=== PATIENT | female | born 1955 | race Caucasian/White ===

== ENCOUNTER 2016-08-02 12:41 | Emergency (ER) | payer MEDICAID ==
--- NOTE | 2016-08-02 12:58 | EDPHY ---
H & P Time Seen by Provider: 08/02/16 12:56 HPI/ROS: CHIEF COMPLAINT: Multiple complaints HISTORY OF PRESENT ILLNESS: This patient is a homeless 61 year old female who presents to the Emergency Department with multiple complaints: "I am deteriorating physically." She has no acute complaints and states that she is mostly looking to speak to a social work program coordinator. She describes chronic bilateral hip and leg pain. She also reports a pruritic rash to her back. She is concerned about lumps to her breasts and would like a referral to a physician to address this. She has been to [facility] regarding her concerns and states that they have not been addressed. She denies any additional medical history. REVIEW OF SYSTEMS: Constitutional: No fever Eyes: No drainage ENT: chronic congestion, No sore throat Respiratory: No cough, no shortness of breath Cardiac: No chest pain Gastrointestinal: No nausea, no vomiting, no abdominal pain Genitourinary: no dysuria Musculoskeletal: +chronic bilateral hip and leg pain Skin: +pruritic rash to back Neurological: No headache Psychiatric: anxiety Past Medical/Surgical History: Chronic hip and back pain. Social History: Homeless, recently transitioned to [place]. Smokes daily. Smoking Status: Current every day smoker Physical Exam: General Appearance: Alert, very talkative Eyes: Pupils equal and round, no conjunctival pallor or injection ENT, Mouth: Mucous membranes moist Neck: Normal inspection Respiratory: Lungs are clear to auscultation Neurological: A&O, nonfocal, normal gait Skin: Warm and dry, maculopapular rash to torso and upper extremities Extremities: normal inspection Psychiatric: Mood and affect normal Constitutional: Initial Vital Signs Temperature (C) 37.2 C 08/02/16 12:42 Heart Rate 84 08/02/16 12:42 Respiratory Rate 16 08/02/16 12:42 Blood Pressure 100/76 08/02/16 12:42 O2 Sat (%) 90 L 08/02/16 12:42 O2 Delivery Mode Room Air Allergies/Adverse Reactions: cephalexin [From Keflex] Allergy (Verified 08/02/16 12:48) Sulfa (Sulfonamide Antibiotics) Allergy (Verified 08/02/16 12:48) Home Medications: Medication Instructions Recorded guaiFENesin [Guaifenesin] 200 mg PO Q4 PRN #30 tablet 08/02/16 Medical Decision Making ED Course/Re-evaluation: This is a homeless 61 year old female recently transitioned to [place] who presents with multiple chronic complaints including leg and hip pain and a mild rash to her back. She states that she is mostly here to speak to a Analyst [employer]. Her exam is benign apart from a mild maculopapular rash to her torso and upper extremities. I discussed with her my recommendation that she use OTC Benadryl to treat her rash; she is agreeable to this. I have arranged for her to discuss her concerns with our Crosscutter on site. I provided her with a referral to [facility] to coordinate her long-term care. I have also given her the contact information for [facility] per her request. She will be discharged home in good condition with resources to follow-up for long-term treatment and plan of care. Differential Diagnosis: The differential diagnosis for the patient's rash included but was not limited to anaphylactoid reaction, urticarial reaction, and other infectious causes for skin rash. Departure - Departure Disposition: Home, Routine, Self-Care Clinical Impression: Rash Condition: Good Instructions: Acute Rash (ED) Additional Instructions: 1. As you have requested, the contact information for [facility] is below: Address: [facility] [facility], [address], [place] [address] 2. Use [id number] Benadryl as directed to treat your rash. 3. I recommend that you follow-up at [facility] to arrange long-term care. This is your best opportunity to arrange follow-up with specialists for your ongoing concerns. [facility] Address: [address] [place], [place] [id number] Hours of Operation: Day Clinic Opens Closed for Lunch Clinica Closes Monday 8am 1-2pm 5pm Monday 8am 1-2pm 8pm Monday 8am 1-2pm 5pm 8am 1-2pm 8pm Monday 8am 1-2pm 5pm 4. Please return to the Emergency Department for any serious concerns such as: shortness of breath, chest pain, severe headache. Referrals: [facility],. [Clinic] - As per Instructions Prescriptions: guaiFENesin [Guaifenesin] 200 mg PO Q4 PRN #30 tablet PRN Reason: cough and congestion Report Scribed for: Tammie Berg Report Scribed by: Ailyn Yoon Date of Report: 08/02/16 Time of Report: 12:58 Physician Review and Approval Statement: 08/02/16 12:58 Portions of this note were transcribed by a medical care evaluation specialist. I personally performed a history, physical exam, medical decision making, and confirmed accuracy of information the transcribed note.
[2016-08-02 14:36] VITALS: BP 115/81; PULSE 82; RESP 18; TEMP 97.3; O2SAT 91
== END 2016-08-02 14:36 | disposition home or self-care (01) ==
DX: R21 Rash and other nonspecific skin eruption (principal); F17.200 Nicotine dependence, unspecified, uncomplicated

== ENCOUNTER 2017-02-10 10:10 | Emergency (ER) | payer MEDICAID ==
[2017-02-10 10:16] VITALS: BP 105/73; PULSE 89; RESP 16; TEMP 98.1; O2SAT 95
[2017-02-10] MEDS ORDERED: DEXAMETHASONE 4 MG TAB PO ONE (10:52)
[2017-02-10] MEDS ORDERED: NEOMYCIN/POLYMYX B/HC SUSP 10 ML OTIC.BTL OT ONE (10:53)
--- NOTE | 2017-02-10 10:54 | EDPHY ---
H & P Stated Complaint: sore throat for 2 weeks, and pink eye to both Time Seen by Provider: 02/10/17 10:53 HPI/ROS: HPI: This is a 61-year-old female presents with Chief Complaint: sore throat for 2 weeks, and pink eye to both Location: Throat Quality: Sore Duration: 2 Signs and Symptoms: No fever, no difficulty swallowing, no difficulty speaking , no neck stiffness, no headache Timing: Daily, intermittent Severity: [id number] Context: Patient is currently homeless and lives in a detention. She comes in cut with complains of sore throat for the last 2 weeks. 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 She is able to eat and drink fluids okay. She also reports that she woke up with her right eye that was red this morning with eyelash matting. She is requesting for an [id number] prescription of antihistamine. She is asking for some antibiotics for her eye and throat and reports that she will follow up with [facility]. Modifying Factors: None Comment: ROS: see HPI Constitutional: No fever, no chills, no weight loss Eyes: No blurred vision Respiratory: No shortness of breath, no cough Cardiovascular: No chest pain Gastrointestinal: No nausea, no vomiting, no diarrhea Genitourinary: No dysuria Extremities: No myalgias Neurologic: No weakness, no numbness Skin: No rashes Hematologic: No bruising, no bleeding MEDICAL/SURGICAL/SOCIAL HISTORY: Medical history: CHEMICAL SCHULTE OF THROAT, 2013.. Surgical history: Denies Social history: Homeless CONSTITUTIONAL: Well-appearing adult white female, awake and alert, no obvious distress HEENT: Atraumatic and normocephalic, PERRL, EOMI. Right conjunctiva mildly injected, left conjunctiva clear. Tympanic membranes clear. Oropharynx clear, no exudate and moist pink mucosa. Airway patent. No lymphadenopathy. No meningismus. Cardiovascular: Normal S1/S2, regular rate, regular rhythm, without murmur rub or gallop. PULMONARY/CHEST: Symmetrical and nontender. Clear to auscultation bilaterally. Good air movement. No accessory muscle usage. ABDOMEN: Soft, nondistended, nontender, no rebound, no guarding, no peritoneal signs, no masses or organomegaly. No CVAT. EXTREMITIES: 2/2 pulses, strength 5/5, no deformities, no clubbing, no cyanosis or edema. NEUROLOGICAL: no focal neuro deficits. GCS 15. SKIN: Warm and dry, no erythema. no rash. Good capillary refill. Source: Patient Exam Limitations: No limitations - Personal History Current Tetanus Diphtheria and Acellular Pertussis (TDAP): Yes Tetanus Vaccine Date: 2010 - Medical/Surgical History Hx Asthma: No Hx Chronic Respiratory Disease: No Hx Diabetes: No Hx Cardiac Disease: No Hx Renal Disease: No Hx Cirrhosis: No Hx Alcoholism: No Hx HIV/AIDS: No Hx Splenectomy or Spleen Trauma: No Other PMH: CHEMICAL SCHULTE OF THROAT, 2013. - Social History Smoking Status: Current every day smoker Constitutional: Initial Vital Signs Temperature (C) 36.7 C 02/10/17 10:12 Heart Rate 89 02/10/17 10:12 Respiratory Rate 16 02/10/17 10:12 Blood Pressure 105/73 02/10/17 10:12 O2 Sat (%) 95 02/10/17 10:12 O2 Delivery Mode Room Air Allergies/Adverse Reactions: cephalexin [From Keflex] Allergy (Verified 08/02/16 12:48) Sulfa (Sulfonamide Antibiotics) Allergy (Verified 08/02/16 12:48) Home Medications: Medication Instructions Recorded Amoxicillin Trihydrate 500 mg PO Q8H #21 cap 02/10/17 [Amoxicillin] Levocetirizine Dihydrochloride 5 mg PO DAILY #10 tablet 02/10/17 [Xyzal] Medical Decision Making ED Course/Re-evaluation: Afebrile and no systemic signs Symptoms greater than 10 days; will treat with antibiotics Patient has no signs of strep pharyngitis, tonsillar abscess, airway compromise , sepsis, periorbital cellulitis Given Decadron, Polytrim eyedrops (to take home) and amoxicillin with patient's great persistence Differential Diagnosis: Differential diagnosis includes conjunctivitis, pharyngitis, viral syndrome, upper respiratory infection, allergic rhinitis. Departure - Departure Disposition: Home, Routine, Self-Care Clinical Impression: Conjunctivitis, right eye Qualifiers: Conjunctivitis type: acute Acute conjunctivitis type: unspecified Qualified Code(s): H10.31 - Unspecified acute conjunctivitis, right eye Pharyngitis Qualifiers: Pharyngitis/tonsillitis etiology: unspecified etiology Qualified Code(s): J02.9 - Acute pharyngitis, unspecified Condition: Good Instructions: Conjunctivitis (ED), Pharyngitis (ED) Referrals: [facility],. [Clinic] - As per Instructions Prescriptions: Amoxicillin Trihydrate [Amoxicillin] 500 mg PO Q8H #21 cap Levocetirizine Dihydrochloride [Xyzal] 5 mg PO DAILY #10 tablet
[2017-02-10] MEDS ORDERED: GENTAMICIN 0.3% DROPS PREPACK OPHT.BTL TAKEHOME ONE (11:38)
--- NOTE | 2017-02-10 12:20 | ASMTCMCOM ---
CM Note CM Note Notes: Patient was discharged to the waiting area and then asked for a bus pass. This CM spoke with patient and provided information on how to arrange for a Medicaid/[place] cab ride and informed her that we have a very limited number of bus passes and are unable to provide her with one today. Patient said she tried to arrange for [employer] transportation and was unsuccessful so she will try the Medicaid/[place] option. Patient states she has been staying at the [facility] and plans to follow up with her provider at [facility] next week. CM available for further assistance. Date Signed: 02/10/2017 12:19 PM Electronically Signed By:Valarie Antunez RN
--- NOTE | 2017-02-10 12:26 | ASDISCHSUM ---
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 This CM spoke with patient and provided information on how to arrange for a Medicaid/[place] cab ride and informed her that we have a very limited number of bus passes and are unable to provide her with one today. Patient said she tried to arrange for VIA transportation and was unsuccessful so she will try the Medicaid/[place] option. Patient states she has been staying at the [facility] and plans to follow up with her provider at [facility] next week. CM available for further assistance. Date Signed: 02/10/2017 12:19 PM Electronically Signed By:Valarie Antunez RN LACE LACE Acuity / Level of Care Answers: No. Emergency dept visits in Answers: 2 last 6 months Score: 2 Date Signed: 02/10/2017 12:20 PM Electronically Signed By:Valarie Antunez RN Intervention Information Intervention Type:Transportation Date of Service:02/10/2017 12:24 PM Patient Type:Emergency Room Staff Member:GREGORY Antunez [place] Hours:0.25 Discipline:Supervisor Road Administrator Severity: Comment:Provided information on how to arrange for Medicaid/[place] cab. Informed patient we are unable to provide a bus pass today .
== END 2017-02-10 12:09 | disposition home or self-care (01) ==
DX: J02.9 Acute pharyngitis, unspecified (principal); H10.31 Unspecified acute conjunctivitis, right eye; F17.200 Nicotine dependence, unspecified, uncomplicated

== ENCOUNTER → 2017-03-29 | Outpatient (CLI) | payer MEDICAID | LOC: BMCIMAGING 10:19 | PROVIDERS: ATTEND Physician Assistant Medical | DX: R92.8 Other abnormal and inconclusive findings on diagnostic imaging of breast (principal) ==